=== PATIENT | female | born 1985 ===

== ENCOUNTER 2017-11-29 15:09 | Emergency (ER) | payer OTHER ==
[2017-11-29 15:21] VITALS: BP 115/69; PULSE 67; TEMP 98.7; O2SAT 98
[2017-11-29] MEDS ORDERED: Albuterol-Ipratrop 3 mg / 0.5 (3 ml) UD IH STA (15:58)
--- NOTE | 2017-11-29 16:18 | ED PDOC ---
HPI: SOB/CHF/COPD Time Seen by Provider: 11/29/17 15:49 Chief Complaint (Nursing): Shortness Of Breath History Per: Patient Onset/Duration Of Symptoms: Days (2) Current Symptoms Are (Timing): Still Present Quality: Tightness Severity: Mild Additional Complaint(s): SOB and chest tightness after exposure to cat. Pt has h/o asthma and allergies to cats. C/o cough productive green sputum Past Medical History Vital Signs: Last Vital Signs Temp 98.7 F 11/29/17 15:19 Pulse 67 11/29/17 15:19 Resp 18 11/29/17 15:19 BP 115/69 11/29/17 15:19 Pulse Ox 98 11/29/17 16:17 - Medical History PMH: Asthma - Family History Family History: States: Unknown Family Hx - Allergies Allergies/Adverse Reactions: Allergies Allergy/AdvReac Type Severity Reaction Status Date / Time mushroom Allergy SWELLING Verified 11/29/17 15:18 Review of Systems Constitutional: Negative for: Fever Respiratory: Positive for: Cough, Shortness of Breath, Wheezing Physical Exam - Physical Exam Appears: Positive for: Non-toxic, No Acute Distress Skin: Positive for: Normal Color, Warm, DRY Cardiovascular/Chest: Positive for: Regular Rate, Rhythm Respiratory: Positive for: Decreased Breath Sounds. Negative for: Respiratory Distress Extremity: Positive for: Normal ROM Neurologic/Psych: Positive for: Alert, Oriented - ECG O2 Sat by Pulse Oximetry: 98 Disposition - Clinical Impression Clinical Impression: Asthma - Patient ED Disposition Is Patient to be Admitted: Transfer of Care - Disposition Disposition: Transfer of Care Disposition Time: 17:03 Condition: FAIR Forms: [employer] (Japanese) Patient Signed Over To: Susan Mills
[2017-11-29] MEDS ORDERED: Albuterol-Ipratrop 3 mg / 0.5 (3 ml) UD ONE ×2 (16:26→18:52)
--- NOTE | 2017-11-29 17:27 | ED PDOC ---
- ECG O2 Sat by Pulse Oximetry: 98 - Progress Re-evaluation Time: 19:20 Condition: Re-examined, Improved Medical Decision Making Medical Decision Makin:00 Patient endorsed to me from Dr. Lehman. Pending Chest X-Ray and reassessment. Chest X-Ray 18:47 FINDINGS: LUNGS: No active pulmonary disease. PLEURA: No significant pleural effusion identified. No pneumothorax apparent. CARDIOVASCULAR: Normal. OSSEOUS STRUCTURES: No significant abnormalities. VISUALIZED UPPER ABDOMEN: Normal. OTHER FINDINGS: None. IMPRESSION: No active disease. Scribe Attestation: Documented by Som Dang acting as a scribe for Susan Mills MD. Provider Scribe Attestation: All medical record entries made by the Scribe were at my direction and personally dictated by me. I have reviewed the chart and agree that the record accurately reflects my personal performance of the history, physical exam, medical decision making, and the department course for this patient. I have also personally directed, reviewed, and agree with the discharge instructions and disposition. Disposition - Clinical Impression Clinical Impression: Asthma - POA Present On Arrival: None - Disposition [facility]errals: [facility] [[facility]] Disposition: Routine/Home Disposition Time: 19:21 Condition: GOOD Additional Instructions: Take your medications as instructed. Follow up with your PCP in 2-3 days. Return for worsening. Prescriptions: Albuterol 0.083% [Albuterol Sulfate 3 Ml] 3 ml IH Q4 PRN #20 neb PRN Reason: Wheezing predniSONE [predniSONE Tab] 60 mg PO DAILY 5 Days tab Instructions: Asthma, Adult (DC)
[2017-11-29] MEDS ORDERED: Albuterol-Ipratrop 3 mg / 0.5 (3 ml) UD INH STA (18:51)
--- NOTE | 2017-11-29 18:54 | RAD ---
HISTORY: Shortness of breath. COMPARISON: No prior. TECHNIQUE: Chest PA and lateral FINDINGS: LUNGS: No active pulmonary disease. PLEURA: No significant pleural effusion identified. No pneumothorax apparent. CARDIOVASCULAR: Normal. OSSEOUS STRUCTURES: No significant abnormalities. VISUALIZED UPPER ABDOMEN: Normal. OTHER FINDINGS: None. IMPRESSION: No active disease.
[2017-11-29 19:25] VITALS: RESP 16
== END 2017-11-29 19:38 | disposition home or self-care (01) ==
LOC: H.ER 15:09
DX: J45.909 Unspecified asthma, uncomplicated (principal)